=== PATIENT | female | born 1990 | race Caucasian/White ===

== ENCOUNTER 2016-11-12 21:09 | Emergency (ER) | payer OTHER ==
[2016-11-12] MEDS ORDERED: DOXYCYCLINE HYCLATE 100 MG TABLET ONE (23:28)
== END 2016-11-12 23:55 | disposition home or self-care (01) ==
LOC: ED 21:09
DX: L03.113 Cellulitis of right upper limb (principal); M06.9 Rheumatoid arthritis, unspecified; I10 Essential (primary) hypertension; J45.909 Unspecified asthma, uncomplicated; Z88.1 Allergy status to other antibiotic agents